=== PATIENT | male | born 1940 | race Caucasian/White ===

== ENCOUNTER 2016-08-15 17:32 | Inpatient (IN) | payer MEDICARE, OTHER ==
[~2016-08-15] VITALS: Ht 170.2 cm; Wt 67.9 kg
[2016-08-15 18:09] LABS: BASOPHILS % (AUTO) 1.2 % (0.0-2.0); EOSINOPHILS % (AUTO) 2.6 % (1.0-6.0); HEMATOCRIT 44.3 % (41-53); HEMOGLOBIN 14.8 g/dL (13.5-17.5); LYMPHOCYTES # (AUTO) 1.3 K/uL (1.0-4.8); LYMPHOCYTES % (AUTO) 26.4 % (22.0-44.0); MEAN CORPUSCULAR HGB CONC 33.4 G/dL (31.0-37.0); MEAN CORPUSCULAR VOLUME 93 fL (80-100); MONOCYTES # (AUTO) 0.7 K/uL (0.1-1.0); MONOCYTES % (AUTO) 14.3 % (2.0-9.0); NEUTROPHILS # (AUTO) 2.8 K/uL (1.8-7.7); NEUTROPHILS % (AUTO) 55.5 % (40.0-70.0); PLATELET COUNT (AUTO) 253 K/uL (150-450); RED BLOOD CELL COUNT(AUTO) 4.78 MIL/uL (4.50-5.90); RED CELL DISTRIBUTION WIDTH 13.4 % (11.5-14.5); WHITE BLOOD COUNT (AUTO) 5.1 K/uL (4.5-11.0)
[2016-08-15 18:16] LABS: INR 1.1 (0.9-1.1); PROTHROMBIN TIME 11.4 SEC (9.4-11.6)
[2016-08-15 18:21] LABS: TROPONIN I 0.02 ng/mL (0.00-0.05)
[2016-08-15 18:27] LABS: ANION GAP 8 mmol/L (8-16); CALCIUM, TOTAL 8.4 mg/dL (8.8-10.5); CARBON DIOXIDE 29 mmol/L (22-29); CHLORIDE 106 mmol/L (98-107); CREATININE 1.28 mg/dL (0.60-1.30); GLOMERULAR FILTR. RATE CALC 54 mL/min (>60); POTASSIUM 4.3 mmol/L (3.5-5.1); SODIUM SERUM 143 mmol/L (136-145); UREA NITROGEN, BLOOD 15 mg/dL (7-18)
[2016-08-15 18:28] LABS: ALANINE AMINOTRANSFERASE 24 U/L (12-78); ALBUMIN 3.2 g/dL (3.4-5.0); ASPARTATE AMINOTRANSFERASE 14 U/L (15-37); BILIRUBIN,TOTAL 0.3 mg/dL (0.1-1.0); CREATINE KINASE, TOTAL 59 U/L (39-308); TOTAL PROTEIN, SERUM 7.4 g/dL (6.4-8.2)
[2016-08-15 18:43] LABS: APPEARANCE,URINE TURBID (CLEAR); GLUCOSE, URINE (UA) 500 mg/dL (NEGATIVE); KETONES,URINE NEGATIVE (NEGATIVE); LEUKOCYTE ESTERASE ,URINE MODERATE (NEGATIVE); OCCULT BLOOD,URINE LARGE (NEGATIVE); PH,URINE 7.5 (5.0-8.0); PROTEIN,URINE SEE CONFIRM (NEGATIVE)
[2016-08-15 18:49] LABS: ADD UA MICROSCOPIC YES
[2016-08-15 18:56] LABS: SULFOSALICYLIC ACID,URINE 2+ (Negative)
[2016-08-15 18:57] LABS: WBC,URINE 51-100 /HPF (0-5)
[2016-08-15 18:58] LABS: CALCIUM OXALATE CRYSTALS,UR Few /LPF (None Seen)
[2016-08-15 19:07] LABS: GLUCOSE,POINT OF CARE 297 MG/DL (70-110)
[2016-08-15] MEDS ORDERED: CefTRIAXone 1 GM/DEXTROSE 50 ML IV ONE (19:15)
[2016-08-15 19:19] LABS: THYROID STIMULATING HORMONE < 0.01 uIU/mL (0.36-3.74)
[2016-08-15] MEDS ORDERED: ACETAMINOPHEN 325 MG TABLET PO PRN (20:00)
[2016-08-15] MEDS ORDERED: 0.9% SODIUM CHLORIDE 10 ML SYRINGE IVP PRN (20:00)
[2016-08-15] MEDS ORDERED: ONDANSETRON HCL 4 MG/2 ML VIAL IVP PRN (20:00)
[2016-08-15 20:56] VITALS: BP 119/77
[2016-08-15 23:59] VITALS: BP 122/96
[2016-08-16 04:17] VITALS: BP 122/71
[2016-08-16 06:14] LABS: BASOPHILS % (AUTO) 0.8 % (0.0-2.0); EOSINOPHILS % (AUTO) 5.1 % (1.0-6.0); HEMOGLOBIN 13.5 g/dL (13.5-17.5); LYMPHOCYTES # (AUTO) 2.2 K/uL (1.0-4.8); LYMPHOCYTES % (AUTO) 34.3 % (22.0-44.0); MEAN CORPUSCULAR HEMOGLOBIN 30.8 pg (26.0-34.0); MEAN CORPUSCULAR HGB CONC 32.9 G/dL (31.0-37.0); MEAN CORPUSCULAR VOLUME 94 fL (80-100); MONOCYTES % (AUTO) 15.3 % (2.0-9.0); NEUTROPHILS # (AUTO) 2.8 K/uL (1.8-7.7); NEUTROPHILS % (AUTO) 44.5 % (40.0-70.0); PLATELET COUNT (AUTO) 236 K/uL (150-450); RED BLOOD CELL COUNT(AUTO) 4.38 MIL/uL (4.50-5.90); RED CELL DISTRIBUTION WIDTH 13.2 % (11.5-14.5); WHITE BLOOD COUNT (AUTO) 6.3 K/uL (4.5-11.0)
[2016-08-16 06:36] LABS: ALANINE AMINOTRANSFERASE 24 U/L (12-78); ALBUMIN 2.9 g/dL (3.4-5.0); ANION GAP 6 mmol/L (8-16); ASPARTATE AMINOTRANSFERASE 17 U/L (15-37); BILIRUBIN,TOTAL 0.2 mg/dL (0.1-1.0); CALCIUM, TOTAL 8.1 mg/dL (8.8-10.5); CARBON DIOXIDE 29 mmol/L (22-29); CHLORIDE 105 mmol/L (98-107); CREATININE 1.04 mg/dL (0.60-1.30); GLOMERULAR FILTR. RATE CALC > 60 mL/min (>60); POTASSIUM 4.2 mmol/L (3.5-5.1); SODIUM SERUM 140 mmol/L (136-145); TOTAL PROTEIN, SERUM 6.6 g/dL (6.4-8.2); UREA NITROGEN, BLOOD 16 mg/dL (7-18)
[2016-08-16] MEDS ORDERED: PNEUMOCOCCAL VACCINE POLYVALENT 0.5 ML VIAL [PPSV23] IM ONE (06:45)
[2016-08-16] MEDS ORDERED: INFLUENZA VIRUS VACCINE QVS 2016-17 (3YR+)/PF 60 MCG/0.5 ML SYRINGE IM ONE (06:45)
[2016-08-16 07:28] VITALS: BP 125/71
[2016-08-16 11:35] VITALS: BP 125/72
[2016-08-16 15:42] VITALS: BP 138/76
[2016-08-16 17:06] LABS: GLUCOSE,POINT OF CARE 207 MG/DL (70-110)
[2016-08-16] MEDS ORDERED: SODIUM CHLORIDE 0.9% 250 ML IV ONE (19:17)
[2016-08-16] MEDS: CefTRIAXone 1 GM/DEXTROSE 50 ML IV SCH (19:34)
[2016-08-16 19:52] VITALS: BP 115/56
[2016-08-16 21:07] LABS: GLUCOSE COMMENT 1 Received Meds; GLUCOSE,POINT OF CARE 243 MG/DL (70-110)
[2016-08-16] MEDS ORDERED: DEXTROSE 50%-WATER 25 GM/50 ML SYRINGE IVP PRN (22:00)
[2016-08-16] MEDS: INSULIN ASPART 100 UNITS/ML SQ PRN (22:17)
[2016-08-16 23:47] VITALS: BP 134/68
[2016-08-17 06:41] LABS: GLUCOSE,POINT OF CARE 129 MG/DL (70-110)
[2016-08-17 07:07] VITALS: BP 104/54
[2016-08-17 11:32] LABS: GLUCOSE COMMENT 1 Received Meds; GLUCOSE,POINT OF CARE 155 MG/DL (70-110)
[2016-08-17 11:33] VITALS: BP 120/74
[2016-08-17] MEDS: INSULIN ASPART 100 UNITS/ML SQ PRN ×2 (12:12→18:06)
[2016-08-17] MEDS: MEMANTINE HCL 5 MG TABLET PO SCH ×2 (13:30→20:06)
[2016-08-17 16:02] VITALS: BP 131/64
[2016-08-17 17:56] LABS: GLUCOSE COMMENT 1 Received Meds; GLUCOSE,POINT OF CARE 263 MG/DL (70-110)
[2016-08-17] MEDS: SitaGLIPtin PHOSPHATE 50 MG TABLET PO SCH (18:01)
[2016-08-17] MEDS: CefTRIAXone 1 GM/DEXTROSE 50 ML IV SCH (18:29)
[2016-08-17 20:28] VITALS: BP 129/72
[2016-08-17 20:52] LABS: GLUCOSE,POINT OF CARE 102 MG/DL (70-110)
[2016-08-17] MEDS ORDERED: INSULIN DETEMIR 100 UNITS/ML SQ SCH (21:00)
[2016-08-18] VITALS (7 sets, daily range): BP systolic 13–140; BP diastolic 53–79
[2016-08-18] MEDS: INSULIN ASPART 100 UNITS/ML SQ PRN ×3 (05:37→17:59)
[2016-08-18 06:40] LABS: HEMOGLOBIN A1C 7.4 % (4.5-6.2)
[2016-08-18 07:47] LABS: GLUCOSE COMMENT 1 Received Meds; GLUCOSE,POINT OF CARE 177 MG/DL (70-110)
[2016-08-18] MEDS: SitaGLIPtin PHOSPHATE 50 MG TABLET PO SCH (08:13)
[2016-08-18] MEDS: MEMANTINE HCL 5 MG TABLET PO SCH ×2 (08:13→20:31)
[2016-08-18 11:42] LABS: GLUCOSE COMMENT 1 Received Meds; GLUCOSE,POINT OF CARE 168 MG/DL (70-110)
[2016-08-18 18:07] LABS: GLUCOSE COMMENT 1 Received Meds; GLUCOSE,POINT OF CARE 198 MG/DL (70-110)
[2016-08-18] MEDS: CefTRIAXone 1 GM/DEXTROSE 50 ML IV SCH (18:10)
[2016-08-18 21:32] LABS: GLUCOSE,POINT OF CARE 155 MG/DL (70-110)
[2016-08-19 04:56] VITALS: BP 156/90
[2016-08-19 05:27] LABS: GLUCOSE,POINT OF CARE 118 MG/DL (70-110)
[2016-08-19 07:25] VITALS: BP 128/68
[2016-08-19] MEDS: SitaGLIPtin PHOSPHATE 50 MG TABLET PO SCH (08:13)
[2016-08-19] MEDS: MEMANTINE HCL 5 MG TABLET PO SCH ×2 (08:13→20:23)
[2016-08-19 11:18] VITALS: BP 127/69
[2016-08-19] MEDS: INSULIN ASPART 100 UNITS/ML SQ PRN (12:21)
[2016-08-19 12:38] LABS: GLUCOSE,POINT OF CARE 238 MG/DL (70-110)
[2016-08-19] MEDS ORDERED: ERGOCALCIFEROL (VIT D2) 50,000 UNITS CAPSULE PO SCH (14:00)
[2016-08-19 16:35] VITALS: BP 120/62
[2016-08-19 16:42] LABS: GLUCOSE,POINT OF CARE 117 MG/DL (70-110)
[2016-08-19] MEDS: CefTRIAXone 1 GM/DEXTROSE 50 ML IV SCH (17:58)
[2016-08-19 19:54] VITALS: BP 124/65
[2016-08-19 22:22] LABS: GLUCOSE,POINT OF CARE 169 MG/DL (70-110)
[2016-08-19 23:34] VITALS: BP 115/62
[2016-08-20 05:02] VITALS: BP 141/79
[2016-08-20 05:52] LABS: GLUCOSE,POINT OF CARE 125 MG/DL (70-110)
[2016-08-20 07:20] VITALS: BP 134/76
[2016-08-20] MEDS: SitaGLIPtin PHOSPHATE 50 MG TABLET PO SCH (08:01)
[2016-08-20] MEDS: MEMANTINE HCL 5 MG TABLET PO SCH ×2 (08:01→20:33)
[2016-08-20 11:10] VITALS: BP 124/70
[2016-08-20 11:47] LABS: GLUCOSE,POINT OF CARE 143 MG/DL (70-110)
[2016-08-20] MEDS: INSULIN ASPART 100 UNITS/ML SQ PRN ×2 (11:49→17:46)
[2016-08-20 15:28] VITALS: BP 116/74
[2016-08-20 17:37] LABS: GLUCOSE,POINT OF CARE 168 MG/DL (70-110)
[2016-08-20] MEDS: CefTRIAXone 1 GM/DEXTROSE 50 ML IV SCH (17:45)
[2016-08-20 20:25] VITALS: BP 141/63
[2016-08-20 23:23] VITALS: BP 145/73
[2016-08-20 23:51] LABS: GLUCOSE,POINT OF CARE 119 MG/DL (70-110)
[2016-08-21 04:33] VITALS: BP 133/66
[2016-08-21 05:47] LABS: GLUCOSE,POINT OF CARE 138 MG/DL (70-110)
[2016-08-21] MEDS ORDERED: [UNRECOGNIZED DRUG - OTHER] INJ ONE (07:35)
[2016-08-21 07:50] VITALS: BP 120/83
[2016-08-21] MEDS: MEMANTINE HCL 5 MG TABLET PO SCH ×2 (08:59→20:03)
[2016-08-21] MEDS: SitaGLIPtin PHOSPHATE 50 MG TABLET PO SCH (08:59)
[2016-08-21 11:32] LABS: GLUCOSE,POINT OF CARE 181 MG/DL (70-110)
[2016-08-21] MEDS: INSULIN ASPART 100 UNITS/ML SQ PRN ×2 (11:48→20:07)
[2016-08-21 11:50] VITALS: BP 144/72
[2016-08-21 15:34] VITALS: BP 113/58
[2016-08-21 16:47] LABS: GLUCOSE,POINT OF CARE 113 MG/DL (70-110)
[2016-08-21] MEDS: CefTRIAXone 1 GM/DEXTROSE 50 ML IV SCH (17:55)
[2016-08-21 19:32] VITALS: BP 122/77
[2016-08-21 23:56] VITALS: BP 112/56
[2016-08-22 00:12] LABS: GLUCOSE COMMENT 1 Received Meds; GLUCOSE,POINT OF CARE 181 MG/DL (70-110)
[2016-08-22 05:16] VITALS: BP 115/61
[2016-08-22] MEDS: INSULIN ASPART 100 UNITS/ML SQ PRN ×2 (05:39→11:42)
[2016-08-22 07:27] VITALS: BP 140/63
[2016-08-22 07:32] LABS: GLUCOSE COMMENT 1 Received Meds; GLUCOSE,POINT OF CARE 164 MG/DL (70-110)
[2016-08-22] MEDS: MEMANTINE HCL 5 MG TABLET PO SCH (08:14)
[2016-08-22] MEDS: SitaGLIPtin PHOSPHATE 50 MG TABLET PO SCH (08:14)
[2016-08-22 11:11] LABS: GLUCOSE,POINT OF CARE 204 MG/DL (70-110)
[2016-08-22 11:49] VITALS: BP 140/93
[2016-08-22] MEDS: CefTRIAXone 1 GM/DEXTROSE 50 ML IV SCH (14:28)
== END 2016-08-22 15:06 | DRG 637 ==
LOC: EMS 17:33 → 6N 20:09
PROVIDERS: ADMIT Internal Medicine; ATTEND Internal Medicine
PROC: 3E0234Z Introduction of Serum, Toxoid and Vaccine into Muscle, Percutaneous Approach (ICD-10-PCS; principal; 2016-08-21)
PROC: 3E0234Z Introduction of Serum, Toxoid and Vaccine into Muscle, Percutaneous Approach (ICD-10-PCS; 2016-08-21)
DX: E11.65 Type 2 diabetes mellitus with hyperglycemia (principal); G93.40 Encephalopathy, unspecified; N39.0 Urinary tract infection, site not specified; F03.90 Unspecified dementia, unspecified severity, without behavioral disturbance, psychotic disturbance, mood disturbance, and anxiety; I70.0 Atherosclerosis of aorta; E05.90 Thyrotoxicosis, unspecified without thyrotoxic crisis or storm; E86.0 Dehydration; E04.1 Nontoxic single thyroid nodule; E55.9 Vitamin D deficiency, unspecified; F17.210 Nicotine dependence, cigarettes, uncomplicated; R97.20 Elevated prostate specific antigen [PSA]; Z23 Encounter for immunization; Z91.11 Patient's noncompliance with dietary regimen
CPT/HCPCS: 70450; 76536; 78012; 82962; 83036; 84439; 84443; 84445; 84481; 85651; 86376; 87040; 87081; 87086; 90471; 93005; 96365; 99285; A9516; J0696; J7050

== ENCOUNTER 2017-10-19 22:23 | Emergency (ER) | payer MEDICARE ==
[~2017-10-19] VITALS: Ht 170.2 cm; Wt 68.2 kg
[2017-10-19 22:37] LABS: GLUCOSE,POINT OF CARE 287 MG/DL (70-110)
[2017-10-19 23:41] LABS: BASOPHILS % (AUTO) 1.3 % (0.0-2.0); EOSINOPHILS % (AUTO) 2.6 % (1.0-6.0); HEMATOCRIT 39.2 % (41-53); HEMOGLOBIN 13.3 g/dL (13.5-17.5); LYMPHOCYTES # (AUTO) 1.6 K/uL (1.0-4.8); LYMPHOCYTES % (AUTO) 24.2 % (22.0-44.0); MEAN CORPUSCULAR HEMOGLOBIN 31.6 pg (26.0-34.0); MEAN CORPUSCULAR HGB CONC 33.9 G/dL (31.0-37.0); MEAN CORPUSCULAR VOLUME 93 fL (80-100); MONOCYTES # (AUTO) 0.6 K/uL (0.1-1.0); MONOCYTES % (AUTO) 9.2 % (2.0-9.0); NEUTROPHILS # (AUTO) 4.1 K/uL (1.8-7.7); NEUTROPHILS % (AUTO) 62.7 % (40.0-70.0); PLATELET COUNT (AUTO) 219 K/uL (150-450); RED BLOOD CELL COUNT(AUTO) 4.21 MIL/uL (4.50-5.90); RED CELL DISTRIBUTION WIDTH 13.3 % (11.5-14.5)
[2017-10-19 23:53] LABS: CALCIUM, TOTAL 8.2 mg/dL (8.8-10.5); CREATININE 1.19 mg/dL (0.60-1.30); POTASSIUM 4.1 mmol/L (3.5-5.1)
[2017-10-19 23:59] LABS: ALBUMIN 3.1 g/dL (3.4-5.0); BILIRUBIN,TOTAL 0.3 mg/dL (0.1-1.0); TOTAL PROTEIN, SERUM 6.5 g/dL (6.4-8.2)
[2017-10-20 00:01] LABS: APPEARANCE,URINE CLOUDY (CLEAR); BILIRUBIN,URINE NEGATIVE (NEGATIVE); GLUCOSE, URINE (UA) >=1000 mg/dL (NEGATIVE); KETONES,URINE TRACE mg/dL (NEGATIVE); LEUKOCYTE ESTERASE ,URINE MODERATE (NEGATIVE); NITRATE,URINE NEGATIVE (NEGATIVE); OCCULT BLOOD,URINE MODERATE (NEGATIVE); PH,URINE 5.5 (5.0-8.0); PROTEIN,URINE SEE CONFIRM (NEGATIVE); UROBILINOGEN,URINE 0.2 mg/dL (<=1.0)
[2017-10-20 00:19] LABS: SULFOSALICYLIC ACID,URINE 2+ (Negative)
[2017-10-20 00:20] LABS: BACTERIA,URINE Many /HPF (None Seen); WBC,URINE 51-100 /HPF (0-5)
[2017-10-20 00:30] VITALS: BP 122/80
== END 2017-10-20 02:47 | disposition home or self-care (01) ==
LOC: EMS 22:25
DX: N39.0 Urinary tract infection, site not specified (principal); E11.65 Type 2 diabetes mellitus with hyperglycemia; M25.561 Pain in right knee; I10 Essential (primary) hypertension
CPT/HCPCS: 70450; 87086; 93005; 99285

== ENCOUNTER 2017-11-20 17:01 | Inpatient (IN) | payer MEDICARE, OTHER ==
[~2017-11-20] VITALS: Ht 170.2 cm; Wt 66.4 kg
[2017-11-20] MEDS ORDERED: MEMA5 PO ×2 (17:39)
[2017-11-20] MEDS ORDERED: ERGO500014 (17:39)
[2017-11-20] MEDS ORDERED: VITAD1000 PO (17:39)
[2017-11-20] MEDS ORDERED: SITA50 PO (17:39)
[2017-11-20 17:42] VITALS: BP 113/68
[2017-11-20] MEDS ORDERED: GLUCAGON,HUMAN RECOMBINANT 1 MG VIAL IM PRN (18:30)
[2017-11-20] MEDS ORDERED: SitaGLIPtin PHOSPHATE 50 MG TABLET PO SCH (18:30)
[2017-11-20] MEDS ORDERED: DEXTROSE 50%-WATER 25 GM/50 ML SYG IVP PRN (18:45)
[2017-11-20] MEDS ORDERED: IPRATROPIUM BROMIDE 0.5 MG/2.5 ML NEB SOLUTION NEB PRN (19:00)
[2017-11-20] MEDS ORDERED: ALBUTEROL SULFATE 2.5 MG/0.5 ML NEB SOLUTION NEB PRN (19:00)
[2017-11-20 19:18] LABS: EOSINOPHILS % (AUTO) 2.4 % (1.0-6.0); HEMATOCRIT 41.2 % (41-53); HEMOGLOBIN 14.2 g/dL (13.5-17.5); MEAN CORPUSCULAR HEMOGLOBIN 31.8 pg (26.0-34.0); MEAN CORPUSCULAR HGB CONC 34.3 G/dL (31.0-37.0); MEAN CORPUSCULAR VOLUME 93 fL (80-100); MONOCYTES # (AUTO) 0.6 K/uL (0.1-1.0); MONOCYTES % (AUTO) 8.5 % (2.0-9.0); NEUTROPHILS # (AUTO) 4.3 K/uL (1.8-7.7); NEUTROPHILS % (AUTO) 60.1 % (40.0-70.0); PLATELET COUNT (AUTO) 220 K/uL (150-450); RED BLOOD CELL COUNT(AUTO) 4.45 MIL/uL (4.50-5.90); RED CELL DISTRIBUTION WIDTH 13.2 % (11.5-14.5)
[2017-11-20 19:40] LABS: ALANINE AMINOTRANSFERASE 28 U/L (12-78); ALBUMIN 3.2 g/dL (3.4-5.0); ALKALINE PHOSPHATASE 159 U/L (46-116); ANION GAP 5 mmol/L (8-16); ASPARTATE AMINOTRANSFERASE 14 U/L (15-37); BILIRUBIN,TOTAL 0.2 mg/dL (0.1-1.0); CALCIUM, TOTAL 8.1 mg/dL (8.8-10.5); CARBON DIOXIDE 30 mmol/L (22-29); CHLORIDE 106 mmol/L (98-107); CREATININE 1.07 mg/dL (0.60-1.30); GLUCOSE,RANDOM 208 mg/dL (70-110); POTASSIUM 4.6 mmol/L (3.5-5.1); SODIUM SERUM 141 mmol/L (136-145); THYROID STIMULATING HORMONE 0.02 uIU/mL (0.36-3.74); TOTAL PROTEIN, SERUM 6.7 g/dL (6.4-8.2); UREA NITROGEN, BLOOD 15 mg/dL (7-18)
[2017-11-20 19:43] LABS: GLOMERULAR FILTR. RATE CALC > 60 mL/min (>60)
[2017-11-20 19:47] LABS: HEMOGLOBIN A1C 8.5 % (4.5-6.2)
[2017-11-20 20:05] LABS: GLUCOMETER DEV NAME(LOC) 6N 1E; GLUCOSE,POINT OF CARE 254 MG/DL (70-110)
[2017-11-20 20:19] VITALS: BP 135/72
[2017-11-20] MEDS: MEMANTINE HCL 5 MG TABLET PO SCH (20:26)
[2017-11-20] MEDS: CHOLECALCIFEROL (VIT D3) 1,000 UNITS TABLET PO SCH (20:26)
[2017-11-20] MEDS: ALBUTEROL SULFATE 2.5 MG/0.5 ML NEB SOLUTION NEB SCH (20:34)
[2017-11-20] MEDS: IPRATROPIUM BROMIDE 0.5 MG/2.5 ML NEB SOLUTION NEB SCH (20:34)
[2017-11-20] MEDS: INSULIN LISPRO 100 UNITS/ML SQ PRN (20:40)
[2017-11-20] MEDS: SODIUM CHLORIDE 0.9% 1,000 ML IV SCH (21:01)
[2017-11-20 22:23] LABS: APPEARANCE,URINE TURBID (CLEAR); BILIRUBIN,URINE NEGATIVE (NEGATIVE); GLUCOSE, URINE (UA) >=1000 mg/dL (NEGATIVE); KETONES,URINE NEGATIVE (NEGATIVE); LEUKOCYTE ESTERASE ,URINE MODERATE (NEGATIVE); NITRATE,URINE NEGATIVE (NEGATIVE); OCCULT BLOOD,URINE LARGE (NEGATIVE); PROTEIN,URINE POS 1+ (NEGATIVE); UROBILINOGEN,URINE 0.2 mg/dL (<=1.0)
[2017-11-20 22:38] LABS: WBC,URINE >100 /HPF (0-5)
[2017-11-20 22:39] LABS: BACTERIA,URINE Many /HPF (None Seen); SQUAMOUS EPITHELIAL CELL,UR Moderate /LPF (None Seen)
[2017-11-20 23:13] VITALS: BP 134/54
[2017-11-21] MEDS: IPRATROPIUM BROMIDE 0.5 MG/2.5 ML NEB SOLUTION NEB SCH ×4 (01:54→20:00)
[2017-11-21] MEDS: ALBUTEROL SULFATE 2.5 MG/0.5 ML NEB SOLUTION NEB SCH ×4 (01:54→20:00)
[2017-11-21 03:34] LABS: GLUCOMETER DEV NAME(LOC) 6N 2D; GLUCOSE,POINT OF CARE 240 MG/DL (70-110)
[2017-11-21 04:44] VITALS: BP 131/73
[2017-11-21] MEDS: INSULIN LISPRO 100 UNITS/ML SQ PRN ×3 (05:21→22:25)
[2017-11-21 05:36] LABS: BASOPHILS % (AUTO) 0.9 % (0.0-2.0); EOSINOPHILS % (AUTO) 2.9 % (1.0-6.0); HEMATOCRIT 39.6 % (41-53); HEMOGLOBIN 13.8 g/dL (13.5-17.5); LYMPHOCYTES # (AUTO) 2.7 K/uL (1.0-4.8); LYMPHOCYTES % (AUTO) 32.9 % (22.0-44.0); MEAN CORPUSCULAR HEMOGLOBIN 32.1 pg (26.0-34.0); MEAN CORPUSCULAR HGB CONC 34.8 G/dL (31.0-37.0); MEAN CORPUSCULAR VOLUME 92 fL (80-100); MONOCYTES # (AUTO) 0.8 K/uL (0.1-1.0); MONOCYTES % (AUTO) 9.2 % (2.0-9.0); NEUTROPHILS # (AUTO) 4.5 K/uL (1.8-7.7); NEUTROPHILS % (AUTO) 54.1 % (40.0-70.0); PLATELET COUNT (AUTO) 214 K/uL (150-450); RED CELL DISTRIBUTION WIDTH 13.1 % (11.5-14.5)
[2017-11-21 05:48] LABS: ANION GAP 6 mmol/L (8-16); CALCIUM, TOTAL 8.3 mg/dL (8.8-10.5); CARBON DIOXIDE 28 mmol/L (22-29); CHLORIDE 106 mmol/L (98-107); CHOL/HDL RATIO 3.5 (4.2-7.3); CHOLESTEROL 154 mg/dL (131-200); CREATININE 0.97 mg/dL (0.60-1.30); GLUCOSE,RANDOM 160 mg/dL (70-110); HDL CHOLESTEROL 44 mg/dL (40-60); LDL CHOL (CALC.) 95 mg/dL (0-130); POTASSIUM 4.5 mmol/L (3.5-5.1); SODIUM SERUM 140 mmol/L (136-145); TRIGLYCERIDES 75 mg/dL (15-150); UREA NITROGEN, BLOOD 17 mg/dL (7-18)
[2017-11-21 05:50] LABS: GLOMERULAR FILTR. RATE CALC > 60 mL/min (>60)
[2017-11-21 06:09] LABS: GLUCOMETER DEV NAME(LOC) 6N 1E; GLUCOSE,POINT OF CARE 181 MG/DL (70-110)
[2017-11-21 07:37] VITALS: BP 127/60
[2017-11-21] MEDS: MEMANTINE HCL 5 MG TABLET PO SCH ×2 (07:54→21:19)
[2017-11-21] MEDS: CHOLECALCIFEROL (VIT D3) 1,000 UNITS TABLET PO SCH (07:54)
[2017-11-21] MEDS: SitaGLIPtin PHOSPHATE 100 MG TABLET PO SCH (07:54)
[2017-11-21] MEDS: SODIUM CHLORIDE 0.9% 1,000 ML IV SCH ×2 (10:52→21:40)
[2017-11-21 11:39] VITALS: BP 150/83
[2017-11-21 12:38] LABS: GLUCOMETER DEV NAME(LOC) 6N 2D; GLUCOSE,POINT OF CARE 137 MG/DL (70-110)
[2017-11-21 16:00] VITALS: BP 144/75
[2017-11-21 19:29] LABS: GLUCOMETER DEV NAME(LOC) 6N 1E; GLUCOSE,POINT OF CARE 218 MG/DL (70-110)
[2017-11-21 20:10] VITALS: BP 146/72
[2017-11-21 23:24] LABS: GLUCOMETER DEV NAME(LOC) 6N 1E; GLUCOSE,POINT OF CARE 223 MG/DL (70-110)
[2017-11-21 23:50] VITALS: BP 163/69
[2017-11-22] MEDS: CefTRIAXone SODIUM 1 GM in DEXTROSE 5%-WATER 10 ML IV SCH ×2 (00:24→23:00)
[2017-11-22] MEDS: ALBUTEROL SULFATE 2.5 MG/0.5 ML NEB SOLUTION NEB SCH ×4 (02:00→20:00)
[2017-11-22] MEDS: IPRATROPIUM BROMIDE 0.5 MG/2.5 ML NEB SOLUTION NEB SCH ×4 (02:00→20:00)
[2017-11-22 05:06] VITALS: BP 161/70
[2017-11-22 05:46] LABS: BASOPHILS % (AUTO) 1.1 % (0.0-2.0); EOSINOPHILS % (AUTO) 3.3 % (1.0-6.0); HEMATOCRIT 42.2 % (41-53); HEMOGLOBIN 14.5 g/dL (13.5-17.5); LYMPHOCYTES # (AUTO) 2.5 K/uL (1.0-4.8); LYMPHOCYTES % (AUTO) 33.7 % (22.0-44.0); MEAN CORPUSCULAR HEMOGLOBIN 31.7 pg (26.0-34.0); MEAN CORPUSCULAR HGB CONC 34.3 G/dL (31.0-37.0); MEAN CORPUSCULAR VOLUME 92 fL (80-100); MONOCYTES # (AUTO) 0.6 K/uL (0.1-1.0); MONOCYTES % (AUTO) 7.8 % (2.0-9.0); NEUTROPHILS % (AUTO) 54.1 % (40.0-70.0); PLATELET COUNT (AUTO) 208 K/uL (150-450); RED BLOOD CELL COUNT(AUTO) 4.56 MIL/uL (4.50-5.90); RED CELL DISTRIBUTION WIDTH 12.9 % (11.5-14.5)
[2017-11-22 05:57] LABS: ANION GAP 6 mmol/L (8-16); CARBON DIOXIDE 26 mmol/L (22-29); CHLORIDE 107 mmol/L (98-107); POTASSIUM 4.3 mmol/L (3.5-5.1); SODIUM SERUM 139 mmol/L (136-145)
[2017-11-22 06:05] LABS: CALCIUM, TOTAL 8.4 mg/dL (8.8-10.5); CREATININE 0.99 mg/dL (0.60-1.30); GLOMERULAR FILTR. RATE CALC > 60 mL/min (>60); GLUCOSE,RANDOM 139 mg/dL (70-110); UREA NITROGEN, BLOOD 14 mg/dL (7-18)
[2017-11-22 06:44] LABS: GLUCOMETER DEV NAME(LOC) 6N 1E; GLUCOSE,POINT OF CARE 132 MG/DL (70-110)
[2017-11-22 07:37] VITALS: BP 144/77
[2017-11-22] MEDS: SitaGLIPtin PHOSPHATE 100 MG TABLET PO SCH (08:55)
[2017-11-22] MEDS: MEMANTINE HCL 5 MG TABLET PO SCH ×2 (08:55→20:24)
[2017-11-22] MEDS: CHOLECALCIFEROL (VIT D3) 1,000 UNITS TABLET PO SCH (08:55)
[2017-11-22] MEDS: MULTIVITAMINS, THERAPEUTIC TABLET PO SCH (08:55)
[2017-11-22] MEDS: INSULIN LISPRO 100 UNITS/ML SQ PRN ×2 (11:42→21:40)
[2017-11-22 12:00] VITALS: BP 146/70
[2017-11-22 16:41] VITALS: BP 139/58
[2017-11-22 18:09] LABS: GLUCOMETER DEV NAME(LOC) 6N 2D; GLUCOSE,POINT OF CARE 186 MG/DL (70-110)
[2017-11-22 18:09] LABS: GLUCOMETER DEV NAME(LOC) 6N 2D; GLUCOSE,POINT OF CARE 133 MG/DL (70-110)
[2017-11-22 19:00] VITALS: BP 140/80
[2017-11-22 22:05] LABS: GLUCOMETER DEV NAME(LOC) 6N 1E; GLUCOSE,POINT OF CARE 236 MG/DL (70-110)
[2017-11-22 23:00] VITALS: BP 145/79
[2017-11-23] MEDS: IPRATROPIUM BROMIDE 0.5 MG/2.5 ML NEB SOLUTION NEB SCH ×4 (02:00→20:00)
[2017-11-23] MEDS: ALBUTEROL SULFATE 2.5 MG/0.5 ML NEB SOLUTION NEB SCH ×4 (02:00→20:00)
[2017-11-23 04:00] VITALS: BP 145/88
[2017-11-23 06:00] LABS: BASOPHILS % (AUTO) 0.2 % (0.0-2.0); EOSINOPHILS % (AUTO) 3.4 % (1.0-6.0); HEMATOCRIT 43.9 % (41-53); HEMOGLOBIN 15.2 g/dL (13.5-17.5); LYMPHOCYTES # (AUTO) 2.8 K/uL (1.0-4.8); LYMPHOCYTES % (AUTO) 33.4 % (22.0-44.0); MEAN CORPUSCULAR HEMOGLOBIN 31.9 pg (26.0-34.0); MEAN CORPUSCULAR HGB CONC 34.6 G/dL (31.0-37.0); MEAN CORPUSCULAR VOLUME 92 fL (80-100); MONOCYTES # (AUTO) 0.7 K/uL (0.1-1.0); MONOCYTES % (AUTO) 7.7 % (2.0-9.0); NEUTROPHILS # (AUTO) 4.7 K/uL (1.8-7.7); NEUTROPHILS % (AUTO) 55.3 % (40.0-70.0); PLATELET COUNT (AUTO) 216 K/uL (150-450); RED BLOOD CELL COUNT(AUTO) 4.76 MIL/uL (4.50-5.90); RED CELL DISTRIBUTION WIDTH 13.3 % (11.5-14.5)
[2017-11-23 06:25] LABS: ANION GAP 6 mmol/L (8-16); CALCIUM, TOTAL 8.5 mg/dL (8.8-10.5); CARBON DIOXIDE 28 mmol/L (22-29); CHLORIDE 106 mmol/L (98-107); CREATININE 1.03 mg/dL (0.60-1.30); GLUCOSE,RANDOM 145 mg/dL (70-110); POTASSIUM 4.4 mmol/L (3.5-5.1); SODIUM SERUM 140 mmol/L (136-145); UREA NITROGEN, BLOOD 18 mg/dL (7-18)
[2017-11-23 06:34] LABS: GLOMERULAR FILTR. RATE CALC > 60 mL/min (>60)
[2017-11-23 06:39] LABS: GLUCOMETER DEV NAME(LOC) 6N 1E; GLUCOSE,POINT OF CARE 155 MG/DL (70-110)
[2017-11-23 07:38] VITALS: BP 140/72
[2017-11-23] MEDS: CHOLECALCIFEROL (VIT D3) 1,000 UNITS TABLET PO SCH (08:32)
[2017-11-23] MEDS: MEMANTINE HCL 5 MG TABLET PO SCH ×2 (08:32→20:14)
[2017-11-23] MEDS: SitaGLIPtin PHOSPHATE 100 MG TABLET PO SCH (08:32)
[2017-11-23] MEDS: MULTIVITAMINS, THERAPEUTIC TABLET PO SCH (08:32)
[2017-11-23 11:34] VITALS: BP 122/65
[2017-11-23] MEDS: INSULIN LISPRO 100 UNITS/ML SQ PRN ×3 (11:41→20:52)
[2017-11-23 15:30] VITALS: BP 124/64
[2017-11-23 19:33] VITALS: BP 113/64
[2017-11-23 20:43] LABS: GLUCOMETER DEV NAME(LOC) 6N 1E; GLUCOSE,POINT OF CARE 203 MG/DL (70-110)
[2017-11-23 20:43] LABS: GLUCOMETER DEV NAME(LOC) 6N 1E; GLUCOSE,POINT OF CARE 162 MG/DL (70-110)
[2017-11-23 20:43] LABS: GLUCOMETER DEV NAME(LOC) 6N 1E; GLUCOSE,POINT OF CARE 174 MG/DL (70-110)
[2017-11-23] MEDS: CefTRIAXone SODIUM 1 GM in DEXTROSE 5%-WATER 10 ML IV SCH (21:52)
[2017-11-24 00:06] VITALS: BP 123/64
[2017-11-24] MEDS: IPRATROPIUM BROMIDE 0.5 MG/2.5 ML NEB SOLUTION NEB SCH ×3 (02:00→14:00)
[2017-11-24] MEDS: ALBUTEROL SULFATE 2.5 MG/0.5 ML NEB SOLUTION NEB SCH ×3 (02:00→14:00)
[2017-11-24 05:00] VITALS: BP 125/90
[2017-11-24 06:09] LABS: GLUCOMETER DEV NAME(LOC) 6N 1E; GLUCOSE,POINT OF CARE 144 MG/DL (70-110)
[2017-11-24 07:38] VITALS: BP 124/68
[2017-11-24] MEDS: MULTIVITAMINS, THERAPEUTIC TABLET PO SCH (09:11)
[2017-11-24] MEDS: SitaGLIPtin PHOSPHATE 100 MG TABLET PO SCH (09:11)
[2017-11-24] MEDS: MEMANTINE HCL 5 MG TABLET PO SCH (09:11)
[2017-11-24] MEDS: CHOLECALCIFEROL (VIT D3) 1,000 UNITS TABLET PO SCH (09:11)
[2017-11-24] MEDS: INSULIN LISPRO 100 UNITS/ML SQ PRN (10:24)
[2017-11-24 11:24] VITALS: BP 113/63
[2017-11-24 11:38] LABS: GLUCOMETER DEV NAME(LOC) 6N 2D; GLUCOSE,POINT OF CARE 242 MG/DL (70-110)
[2017-11-24 14:09] LABS: GLUCOMETER DEV NAME(LOC) 6N 1E; GLUCOSE,POINT OF CARE 153 MG/DL (70-110)
[2017-11-24 15:43] VITALS: BP 138/91
== END 2017-11-24 16:20 | DRG 602 ==
LOC: 6N 17:01
PROVIDERS: ADMIT Internal Medicine; ATTEND Internal Medicine
DX: L03.116 Cellulitis of left lower limb (principal); L89.93 Pressure ulcer of unspecified site, stage 3; N39.0 Urinary tract infection, site not specified; E11.65 Type 2 diabetes mellitus with hyperglycemia; L03.115 Cellulitis of right lower limb; E11.9 Type 2 diabetes mellitus without complications; E86.0 Dehydration; E05.90 Thyrotoxicosis, unspecified without thyrotoxic crisis or storm; F03.90 Unspecified dementia, unspecified severity, without behavioral disturbance, psychotic disturbance, mood disturbance, and anxiety; I10 Essential (primary) hypertension; R29.6 Repeated falls; Z87.440 Personal history of urinary (tract) infections; Z79.899 Other long term (current) drug therapy
CPT/HCPCS: 71046; 83036; 83735; 84436; 84443; 84481; 87070; 87086; 87205; 93306; 94640; 97161; 97165; 97535; J0696; J7030; J7060